=== PATIENT | female | born 1995 | race Caucasian/White ===

== ENCOUNTER 2024-04-01 15:00 | Outpatient (CLI) | payer OTHER, SELFPAY ==
--- OUTSIDE RECORDS SUMMARY | 2024-04-01 15:02 | XMS_ITS | Referral Summary ---
Author Organization [facility] Address [address] [place] [id number] Care Team Providers Care Pattern Vault Clerk Name Role Phone No Ref-Primary, Physician Primary Care Provider Encounters Date Type Department Care Team Description 03/29/2024 Travel 03/29/2024 12:43 PM CDT - 03/29/2024 4:35 PM CDT Emergency [facility] Emergency Dept [address] [place] [address] Sidney Pfeiffer MD Palpitations; Atypical chest pain Discharge Disposition: Home or Self Care from Last 3 Months Allergies No known active allergies Medications Medication Sig Dispensed Refills Start Date End Date Status LESSINA-28 0.1-20 MG-MCG tabletIndications:Bir th control counseling TAKE 1 TABLET BY MOUTH DAILY 84 tablet 09/07/2019 Active oxyCODONE (ROXICODONE) 5 MG tablet Take 1 tablet (5 mg) by mouth every 6 hours as needed for pain 12 tablet 10/14/2019 Active metoclopramide (REGLAN) 10 MG tablet Take 1 tablet (10 mg) by mouth 3 times daily as needed (nausea) 30 tablet 10/14/2019 Active Active Problems Problem Noted Date Diagnosed Date History of abnormal cervical Pap smear 9 Overview: 2016 LSIL with +other HPV 2017 Normal 2018 No Pap done 02/01/2019 NIL pap, Neg HPV . Pap in 3 years Oral contraceptive pill surveillance 11/26/2016 Resolved Problems Problem Noted Date Diagnosed Date Resolved Date Other postprocedural status(V45.89) 03/02/2012 08/07/2012 Abnormality of gait 03/02/2012 08/07/20 12 Sprain of cruciate ligament of knee 02/16/2012 03/09/2012 Sprain of cruciate ligament of knee 10/13/2009 12/08/2009 Other postprocedural status(V45.89) 10/13/2009 12/08/2009 Sprain of cruciate ligament of knee 05/28/2009 09/18/2009 Immunizations Name Administration Dates Next Due HPV9 02/01/2019 Social History Tobacco Use Types Packs/Day Years Used Date Smoking Tobacco: Never Smokeless Tobacco: Never Tobacco Cessation:Counseling Given: No Alcohol Use Standard Drinks/Week Comments Yes 0 (1 standard drink = 0.6 oz pur e alcohol) vodka PHQ-2 Answer Date Recorded PHQ-2 Score 0 01/10/2019 Adolescent Education Answer Date Record ed Getting School Help Needed Not on file 03/29 Sex and Gender Information Value Date Recorded Sex Assigned at Not on file Gender Identity Not on file Sexual Orientation Not on file Last Filed Vital Signs Vital Sign Reading Time Taken Comments Blood Pressure 112/81 03/29/2024 4:30 PM CDT Pulse 94 03/29/2024 4:00 PM CDT Temperature 36.6 ??C (97.9 ??F) 10/14/2019 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 Respiratory Rate 14 03/29/2024 1:10 PM CDT Oxygen Saturation 100% 03/29/2024 4:30 PM CDT Inhaled Oxygen Concentration - - Weight 66.2 kg (145 lb 15.1 oz) 024 12:40 PM CDT Height 170.2 cm (5' 7) 03/29/2024 12:4 0 PM CDT Body Mass Index 22.86 03/29/2024 12:40 PM CDT Plan of Treatment Not on file Procedures Procedure Name Priority Date/Time Associated Diagnosis Comments XR CHEST 2 VIEWS STAT 03/29/2024 3:47 PM CDT HCG QUALITATIVE STAT 03/29/2024 1:05 PM CDT ABO/RH TYPE AND SCREEN STAT 03/29/2024 1:04 PM CDT CBC WITH PLATELETS & DIFFERENTIAL STAT 03/29/2024 1:04 PM CDT TYPE AND SCREEN, ADULT STAT 03/29/2024 1:04 PM CDT CBC WITH PLATELETS AND DIFFERENTIAL STAT 03/29/2024 1:04 PM CDT TSH WITH FREE T4 REFLEX STAT 03/29/2024 1:04 PM CDT TROPONIN T, HIGH SENSITIVITY STAT 03/29/2024 1:04 PM CDT BASIC METABOLIC PANEL STAT 03/29/2024 1:04 PM CDT D DIMER QUANTITATIVE STAT 03/29/2024 1:04 PM CDT EKG 12-LEAD, TRACING ONLY STAT 03/29/2024 12:40 PM CDT PAP IMAGED THIN LAYER SCREEN Routine 02/01/2019 2:39 PM CDT Encounter for gynecological examination without abnormal finding NEISSERIA GONORRHOEAE PCR Routine 06/20/2018 9:43 AM CDT Screen for STD (sexually transmitted disease) HIV ANTIGEN ANTIBODY COMBO Routine 05/05/2016 10:50 AM CDT Screen for STD (sexually transmitted disease) HEPATITIS C ANTIBODY Routine 05/05/2016 10:50 AM CDT Screen for STD (sexually transmitted disease) from Last 3 Months or Most Recently Relevant to Health Maintenance Results * XR Chest 2 Views (03/29/2024 3:47 PM CDT) Anatomical Region Laterality Modality Chest Digital Radiogra phy Impressions 03/29/2024 3:50 PM CDT IMPRESSION: No infiltrate, pleural effusion or pneumothorax. The cardiac and mediastinal silhouettes are normal. AMILCAR CASTRO MD SYSTEM ID: ??[id number] Narrative 03/29/2024 3:50 PM CDT XR CHEST 2 VIEWS 03/29/2024 3:47 PM HISTORY: chest pain COMPARISON: None. Procedure Note Amilcar Castro MD - 03/29/2024 XR CHEST 2 VIEWS 03/29/2024 3:47 PM HISTORY: chest pain COMPARISON: None. IMPRESSION: No infiltrate, pleural effusion or pneumothorax. The cardiac and mediastinal silhouettes are normal. AMILCAR CASTRO MD SYSTEM ID: [id number] Sidney Pfeiffer MD IMG DIAGNOSTIC IMAGING ORDERABLES * HCG QUALitative (blood) (03/29/2024 1:05 PM CDT) hCG Serum Qualitative Negative Negative CHASITY 03/29/2024 2:03 PM CDT [facility] Comment:This test is for scr eening purposes. Results should be interpreted along with the clinical picture. Confirmation testing is available if warranted by ordering [id number], HCG Quantitative . Blood BLOOD SPECIMEN / Unknown Venipuncture / Unknown 03/29/2024 1:05 PM CDT 03/29/2024 1:10 PM CDT Sidney Pfeiffer MD LAB - BLOOD ORD ERABLES [facility] [address] [facility] Lab (1st floor, no room number) [place] [address], [facility] * CBC with platelets and differential (03/29/2024 1:04 PM CDT) WBC Count 7.0 4.0 - 11.0 10e3/uL 03/29/2024 1:15 PM CDT [facility] RBC Count 4.16 3.80 - 5.20 10e6/uL 03/29/2024 1:15 PM CDT [facility] Hemoglobin 11.9 11.7 - 15.7 g/dL 03/29/2024 1:15 PM CDT [facility] Hematocrit 36.4 35.0 - 47.0 % 03/29/2024 1:15 PM CDT [facility] MCV 88 78 - 100 fL 03/29/2024 1:15 PM CDT [facility] MCH 28.6 26.5 - 33.0 pg 03/29/2024 1:15 PM CDT [facility] MCHC 32.7 31.5 - 36.5 g/dL 03/29/2024 1:15 PM CDT [facility] RDW 13.3 10.0 - 15.0 % 03/29/2024 1:15 PM CDT [facility] Platelet Count 208 150 - 450 10e3/uL 03/29/2024 1:15 PM CDT [facility] % Neutrophils 54 % 03/29/2024 1:15 PM CDT [facility] % Lymphocytes 37 % 03/29/2024 1:15 PM CDT [facility] % Monocytes 7 % 03/29/2024 1:15 PM CDT [facility] % Eosinophils 1 % 03/29/2024 1:15 PM CDT [facility] % Basophils 0 % 03/29/2024 1:15 PM CDT [facility] % Immature Granulocytes 0 % 03/29/2024 1:15 PM CDT [facility] NRBCs per 100 WBC 0 <1 /100 024 1:15 PM CDT [facility] Absolute Neutrophils 3.8 1.6 - 8.3 10e3/uL 03/29/2024 1:15 PM CDT [facility] Absolute Lymphocytes 2.6 0.8 - 5.3 10e3/uL 03/29/2024 1:15 PM CDT [facility] Absolute Monocytes 0.5 0.0 - 1.3 10e3/uL 03/29/2024 1:15 PM CDT [facility] Absolute Eosinophils 0.1 0.0 - 0.7 10e3/uL 03/29/2024 1:15 PM CDT [facility] Absolute Basophils 0.0 0.0 - 0.2 10e3/uL 03/29/2024 1:15 PM CDT [facility] Absolute Immature Granulocytes 0.0 <=0.4 10e3/uL 03/29/2024 1:15 PM CDT [facility] Absolute NRBCs 0.0 10e3/uL 03/29/2024 1:15 PM CDT [facility] Blood BLOOD SPECIMEN / Unknown Venipuncture / Unknown 03/29/2024 1:04 PM CDT 03/29/2024 1:10 PM CDT Sidney Pfeiffer MD LAB - BLOOD ORD ERABLES LABORATORY [facility] [address], no room number) [place] [address] * Adult Type and Screen (03/29/2024 1:04 PM CDT) Pathologist [facility] ABO/RH(D) A POS 03/29/2024 12:57 PM CDT [facility] B[facility]OD BANK Antibody Screen Negative Negative 03/29/2024 12:57 PM CDT [facility] B[facility]OD BANK SPECIMEN EXPIRATION DATE [id number] 03/29/2024 12:57 PM CDT BLOOD BANK Blood BLOOD SPECIMEN / Unknown Venipuncture / Unknown 03/29/2024 1:04 PM CDT 03/29/2024 1:13 PM CDT Sidney Pfeiffer MD LAB - BLOOD BAN K TEST ORDER Performing Organization Address City/[facility]/ZIP Co de Phone Number BLOOD BANK [address] [place] [address], [facility] * Troponin T, High Sensitivity (03/29/2024 1:04 PM CDT) Pathologist [facility] Troponin T, High Sensitivity <6 <=14 ng/L 03/29/2024 1:52 PM CDT LABORATORY Comment: Either a High Sensitivity Troponin T baseline (0 hours) value = 100 ng/L, or an increase in High Sensitivity Troponin T = 7 ng/L at 2 hours compared to 0 hours (2-0 hours), suggests myocardial injury, and urgent clinical attention is required. ?? If the 2-0 hours increase is <7 ng/L, a High Sensitivity Troponin T result above gender-specific reference ranges warrants further evaluation. Recommendations for further evaluation include correlation with clinical decision-making tool (e.g., HEART), a 3rd High Sensitivity Troponin T test 2 hours after the 2nd (a 20% change from baseline would represent concern), admission for observation, close PCC/cardiology follow-up, or urgent outpatient provocative testing. Blood BLOOD SPECIMEN / Unknown Venipuncture / Unknown 03/29/2024 1:04 PM CDT 03/29/2024 1:10 PM CDT Sidney Pfeiffer MD LAB - BLOOD ORD ERAMAREN Performing Organization Address City/[facility]/ZIP Co de Phone Number [facility] [address] Lab (1st floor, no room number) [place] [phone] [place] [address] * TSH with free T4 reflex (03/29/2024 1:04 PM CDT) TSH 1.67 0.30 - 4.20 uIU/mL 03/29/2024 1:52 PM CDT LABORATORY Blood BLOOD SPECIMEN / Unknown Venipuncture / Unknown 03/29/2024 1:04 PM CDT 03/29/2024 1:10 PM CDT Sidney Pfeiffer MD LAB - BLOOD ORD VAUGHN Performing Organization Address [facility] Co de Phone Number [facility] [address] Lab (1st floor, no room number) [place] [phone] * D dimer quantitative (03/29/2024 1:04 PM CDT) D-Dimer Quantitative 0.31 0.00 - 0.50 ug/mL FEU 03/29/2024 1:50 PM CDT [facility] Blood BLOOD SPECIMEN / Unknown Venipuncture / Unknown 03/29/2024 1:04 PM CDT 03/29/2024 1:10 PM CDT Narrative [facility] - 03/29/2024 1:50 PM CDT This D-dimer assay is intended for use in conjunction with a clinical pretest probability assessment model to exclude pulmonary embolism (PE) and deep venous thrombosis (DVT) in outpatients suspected of PE or DVT. The cut-off value is 0.50 ug/mL FEU. Sidney Pfeiffer MD LAB - BLOOD ORD ERAMAREN Performing Organization Address City/[facility]/ZIP Co de Phone Number [facility] [address] Lab (1st floor, no room number) [place] [address], [facility] * (ABNORMAL) Basic metabolic panel (03/29/2024 1:04 PM CDT) Sodium 138 135 - 145 mmol/L 03/29/2024 1:46 PM CDT [facility] Potassium 3.5 3.4 - 5.3 mmol/L 03/29/2024 1:46 PM CDT [facility] Chloride 103 98 - 107 mmol/L 03/29/2024 1:46 PM CDT [facility] Carbon Dioxide (CO2) 20(L) 22 - 29 mmol/L 03/29/2024 1:46 PM CDT [facility] Anion Gap 15 7 - 15 mmol/L 03/29/2024 1:46 PM CDT [facility] Urea Nitrogen 10.8 6.0 - 20.0 mg/dL 03/29/2024 1:46 PM CDT [facility] Creatinine 0.70 0.51 - 0.95 mg/dL 03/29/2024 1:46 PM CDT [facility] GFR Estimate >90 >60 mL/min/1.7 3m2 03/29/2024 1:46 PM CDT [facility] Comment:eGFR calculated usin 2020 CKD-EPI equation. Calcium 8.7(L) 8.8 - 10.4 mg/dL 03/29/2024 1:46 PM CDT [facility] Comment:Reference intervals for this test were updated on 03/06/2024 to reflect our healthy population more accurately. There may be differences in the flagging of prior results with similar values performed with this method. Those prior results can be interpreted in the context of the updated reference intervals. Glucose 115(H) 70 - 99 mg/dL 03/29/2024 1:46 PM CDT [facility] Blood BLOOD SPECIMEN / Unknown Venipuncture / Unknown 03/29/2024 1:04 PM CDT 03/29/2024 1:10 PM CDT Sidney Pfeiffer MD LAB - BLOOD ORD ERABLES LABORATORY [facility] [address] Lab (1st floor, no room number) [place] [address] * EKG 12 lead (03/29/2024 12:40 PM CDT) Systolic Blood Pressure mmHg RADIOLOGY RESULTS Diastolic Blood Pressure mmHg RADIOLOGY RESULTS Ventricular Rate 119 BPM RAD IOLOGY RESULTS Atrial Rate 119 BPM RADIOLOG Y RESULTS DE Interval 156 ms RADIOLOG Y RESULTS QRS Duration 92 ms RADIOLO GY RESULTS QT 306 ms RADIOLOGY RESULTS QTc 430 ms RADIOLOGY RESULTS P [place] 74 degrees RADIOLOGY RESULTS R AXIS 76 degrees RADIOLOGY RESULTS T [place] 46 degrees RADIOLOGY RESULTS Interpretation ECG Sinus tachycardia Incomplete right bundle branch block Borderline ECG No previous ECGs available Unconfirmed report - interpretation of this ECG is computer generated - see medical record for final interpretation Confirmed by - EMERGENCY ROOM, PHYSICIAN ([id number]), photo editor AJAY GARCIA ([id number]) on 03/30/2024 6:40:45 AM RADIOLOGY RESULTS 03/29/2024 12:4 0 PM CDT 03/30/2024 6:40 AM CDT Sidney Pfeiffer MD ECG ORDERABLES RADIOLOGY RESULTS * Pap imaged thin layer screen with HPV - recommended age 30 - 65 (02/01/2019 2:39 PM CDT) PAP NIL COPATH Copath Report Patient Name: MARY VIDAL MR#: [id number] Specimen #: [id number] Collected: 02/01/2019 Received: 02/02/2019 Reported: 02/06/2019 13:10 Ordering Phy(s): ZEINA MUSTAFA For improved result formatting, select 'View Enhanced Report Format' under Linked Documents section. SPECIMEN/STAIN PROCESS: Pap imaged thin layer prep screening (Surepath, FocalPoint with guided screening) ? Pap-Cyto x 1, HPV ordered x 1 SOURCE: Cervical, endocervical Pap imaged thin layer prep screening (Surepath, FocalPoint with guided screening) SPECIMEN ADEQUACY: Satisfactory for evaluation. -Transformation zone component present. CYTOLOGIC INTERPRETATION: Negative for intraepithelial lesion or malignancy Electronically signed out by: YULISA Rose (ASCP) CLINICAL HISTORY: A previous normal pap Date of Last Pap: 04/13/2017, Papanicolaou Test Limitations: ??Cervical cytology is a screening test with limited sensitivity; regular screening is critical for cancer prevention; Pap tests are primarily effective for the diagnosis/preventi on of squamous cell carcinoma, not adenocarcinomas or other cancers. COLLECTION SITE: Client: [facility] The technical component of this testing was completed at the [facility], with the professional component performed at the [facility], [address] [place] [phone] ([phone]) COPATH Cytologic material (specimen) 02/01/2019 2:39 PM CDT 02/02/2019 11:08 AM CDT Zeina Mustafa APRN CN LAB - OPTIM E CLINICAL SPECIMEN COPATH * NEISSERIA GONORRHOEA PCR (06/20/2018 9:43 AM CDT) Specimen Descrip Cervix 06/20/20 18 10:17 AM CDT [facility] N Gonorrhea PCR Negative NEG^Negat nerissa 06/21/2018 1:26 PM CDT [facility] Comment: Negative for N. gonorrhoeae rRNA by pin inserter mediated amplification. A negative result by pin inserter mediated amplification does not preclude the presence of N. gonorrhoeae infection because results are dependent on proper and adequate collection, absence of inhibitors, and sufficient rRNA to be detected. Cervical swab (specimen) 06/20/2018 9:43 AM CDT 06/20/2018 10:17 AM CDT Thuy Hillman APRN [facility] - [place] [facility] PATHOLOGIST GENERAL ORDERABLES [facility] [address] [place] [address] * HIV Antigen Antibody Combo (05/05/2016 10:50 AM CDT) HIV Antigen Antibody Combo Nonreactive HIV-1 p24 Ag & HIV-1/HIV-2 Ab Not Detected NR [facility] Blood specimen (specimen) 05/05/2016 10:50 AM CDT 05/05/2016 10:51 AM CDT Jo-Ann Baptiste APRN [facility] - BLOOD ORDERA BLES [facility] [address] * Hepatitis C Antibody (05/05/2016 10:50 AM CDT) Hepatitis C Antibody Nonreactive Assay performance characteristics have not been established for newborns, infants, and children NR [facility] Blood specimen (specimen) 05/05/2016 10:50 AM CDT 05/05/2016 10:51 AM CDT Jo-Ann Baptiste APRN [facility] - BLOOD ORDERA BLES [facility] [address] from Last 3 Months or Most Recently Relevant to Health Maintenance Care Teams Pattern Vault Clerk Relationship Specialty Start Date End Date No Ref-Primary, Physician PCP - General 10/30/17
--- OUTSIDE RECORDS SUMMARY | 2024-04-01 15:02 | XMS_ITS | Encounter Summary ---
Author Organization [facility] Address [address] [place] [address] Care Team Providers Care Rigging Up Man Name Role Phone No Ref-Primary, Physician Primary Care Provider Encounter Details Date Type Department Care Team (Latest Contact Info) Description 03/29/2024 Travel Social History Tobacco Use Types Packs/Day Years Used Date Smoking Tobacco: Never Smokeless Tobacco: Never Alcohol Use Standard Drinks/Week Comments Yes 0 (1 standard drink = 0.6 oz pur e alcohol) vodka PHQ-2 Answer Date Recorded PHQ-2 Score 0 01/10/2019 Adolescent Education Answer Date Record ed Getting School Help Needed Not on file 03/29 Sex and Gender Information Value Date Recorded Sex Assigned at Not on file Gender Identity Not on file Sexual Orientation Not on file documented as of this encounter Plan of Treatment Not on file documented as of this encounter Visit Diagnoses Not on filedocumented in this encounter Additional Health Concerns Assessment Noted Time PHQ-9 Depression Total Score: 5 02/02/20 19 2:09 PM CDT documented as of this encounter Care Teams Rigging Up Man Relationship Specialty Start Date End Date No Ref-Primary, Physician PCP - General 10/30/17 documented as of this encounter
--- OUTSIDE RECORDS SUMMARY | 2024-04-01 15:02 | XMS_ITS | Clinical Summary ---
Author Organization [facility] Address [address] [place] [id number] Care Team Providers Care Event Organizer Name Role Phone No Ref-Primary, Physician Primary Care Provider Allergies No known active allergies Medications Medication [...] of cruciate ligament of knee 05/28/2009 09/18/2009 Encounters Date Type Department Care Team Description 03/29/2024 12:43 PM CDT - 03/29/2024 4:35 PM CDT Emergency [facility] [address] [place] [address] Sidney Pfeiffer MD Palpitations; Atypical chest pain Discharge Disposition: Home or Self Care 03/29/2024 Travel from Last 3 Months Immunizations Name Administration Dates Next Due HPV9 02/01/2019 Family History Medical History Relation Comments Ovarian Cancer Maternal Grandmother passed in h er late 60s Other - See Comments Mother mother had spots on her ovaries-had hysterectomy Relation Status Comments Maternal Grandmother Mother Social History Tobacco Use Types Packs/Day Years [...] ??C (97.9 ??F) 10/14/2019 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 Respiratory Rate 14 03/29/2024 1:10 PM CDT Oxygen Saturation 100% 03/29/2024 4:30 PM CDT Inhaled Oxygen Concentration - - Weight 66.2 kg (145 lb 15.1 oz) 024 12:40 PM CDT Height 170.2 cm (5' 7) 03/29/2024 12:4 0 PM CDT Body Mass Index 22.86 03/29/2024 12:40 PM CDT Plan of Treatment Health Maintenance Due Date Last Done Comments ADVANCE CARE PLANNING 1994 ANNUAL REVIEW OF HM ORDERS 1994 HEPATITIS B IMMUNIZATION (2 of 3 - 3-dose series) 01/13/1996 12/16/1995 IPV IMMUNIZATION (2 of 3 - 4-dose series) 03/25/2000 02/26/2000 COVID-19 Vaccine (3 - season) 2023 09/10/2021, 08/20/2021 PHQ-2 (once per calendar year) 2023 02/01/2019, 01/10/2019, 04/13/2017, Additional history exists YEARLY PREVENTIVE VISIT 09/15/2023 09/15/19 23, 04/13/2017, 01/13/2016 INFLUENZA VACCINE (#1) 2024 4, 06/15/2012, 06/17/2010, Additional history exists PAP 09/15/2025 09/15/2022, 01/20, 04/13/2017, Additional history exists DTAP/TDAP/TD IMMUNIZATION (8 - Td or Tdap) 05/28/2030 05/28/2020, 04/13/2006, 02/26/2000, Additional history exists MENINGITIS IMMUNIZATION Aged Out 02/14/2014, 05/07 No longer eligible based on patient's age to complete this topic HEPATITIS C SCREENING Completed 05/05/2016 HIV SCREENING Completed 05/05/2016 CHLAMYDIA SCREENING Discontinued 06/20/2018, 06/20/2018, 04/13/2017, Additional history exists HPV IMMUNIZATION Completed 02/01/2019, , 02/14/2014 Pneumococcal Vaccine: Pediatrics (0 to 5 Years) and At-Risk Patients (6 to 64 Years) Aged Out No longer eligible based on patient's age to complete this topic RSV MONOCLONAL ANTIBODY Aged Out No l onger eligible based on patient's age to complete this topic Procedures Procedure Name Priority Date/Time Associated Diagnosis [...] are normal. AMILCAR CASTRO MD SYSTEM ID: [id number] Narrative 03/29/2024 3:50 PM CDT XR CHEST 2 VIEWS 03/29/2024 3:47 PM HISTORY: chest pain COMPARISON: None. Procedure Note Amilcar Castro MD - 03/29/2024 XR CHEST 2 VIEWS 03/29/2024 3:47 PM HISTORY: chest pain COMPARISON: None. IMPRESSION: No infiltrate, pleural effusion or pneumothorax. The cardiac and mediastinal silhouettes are normal. AMILCAR CASTRO MD SYSTEM ID: [id number] Sidney Pfeiffer MD IMG DIAGNOSTIC IMAGING ORDERABLES * HCG QUALitative (blood) (03/29/2024 1:05 PM CDT) hCG Serum Qualitative Negative Negative CHASITY 03/29/2024 2:03 PM CDT [facility] Comment:This test is for scr eening purposes. Results should be interpreted along with the clinical picture. Confirmation testing is available if warranted by ordering [id number], HCG Quantitative . Blood BLOOD SPECIMEN / Unknown Venipuncture / Unknown 03/29/2024 1:05 PM CDT 03/29/2024 1:10 PM CDT Sidney Pfeiffer MD LAB - BLOOD ORD ERABLES [facility] Lab [address] [facility] Lab (1st floor, no room number) [place] [address] * CBC with platelets and differential [...] LAB - BLOOD ORD ERABLES [facility] [address] floor, no room number) [place] [address] * Adult Type and Screen (03/29/2024 1:04 PM CDT) ABO/RH(D) A POS 03/29/2024 12:57 PM CDT RH BLOOD BANK Antibody Screen Negative Negative 03/29/2024 12:57 PM CDT [facility] BLOOD BANK SPECIMEN EXPIRATION DATE [id number] 03/29/2024 12:57 PM CDT [facility] BLOOD BANK Blood BLOOD SPECIMEN / Unknown Venipuncture / Unknown 03/29/2024 1:04 PM CDT 03/29/2024 1:13 PM CDT Sidney Pfeiffer MD LAB - BLOOD BAN K TEST ORDER BLOOD BANK [address] [place] [address] * Troponin T, High Sensitivity (03/29/2024 1:04 PM CDT) Pathologist [facility] Troponin T, High Sensitivity <6 <=14 ng/L [...] Pfeiffer MD LAB - BLOOD ORD ERABLES [facility] Acute Care Lab [address] Lab (1st floor, no room number) [address] * TSH with free T4 reflex (03/29/2024 1:04 PM CDT) TSH 1.67 0.30 - 4.20 uIU/mL 03/29/2024 1:52 PM CDT [facility] Blood BLOOD SPECIMEN / Unknown Venipuncture / Unknown 03/29/2024 1:04 PM CDT 03/29/2024 1:10 PM CDT Sidney Pfeiffer MD LAB - BLOOD ORD ERABLES Performing Organization Address [facility]/ZIP Co de Phone Number [facility] [address] Lab (1st floor, no room number) [address] * D dimer quantitative (03/29/2024 1:04 PM CDT) D-Dimer Quantitative 0.31 0.00 - 0.50 ug/mL FEU 03/29/2024 1:50 PM CDT LABORATORY Blood BLOOD SPECIMEN / [...] Pfeiffer MD LAB - BLOOD ORD ERABLES [facility] Care Lab [address] Lab (1st floor, no room number) [address] * (ABNORMAL) Basic metabolic panel (03/29/2024 1:04 [...] - 99 mg/dL 03/29/2024 1:46 PM CDT LABORATORY Blood BLOOD SPECIMEN / Unknown Venipuncture / Unknown 03/29/2024 1:04 PM CDT 03/29/2024 1:10 PM CDT Sidney Pfeiffer MD LAB - BLOOD ORD ERABLES LABORATORY [facility] Acute Care Lab [address] Lab (1st floor, no room number) [place] [address], [facility] * EKG 12 lead (03/29/2024 12:40 PM CDT) Systolic Blood Pressure mmHg RADIOLOGY RESULTS Diastolic Blood Pressure mmHg RADIOLOGY RESULTS Ventricular Rate 119 BPM RAD IOLOGY RESULTS Atrial Rate 119 BPM RADIOLOG Y RESULTS NH Interval 156 ms RADIOLOG Y RESULTS QRS Duration 92 ms RADIOLO GY RESULTS QT 306 ms RADIOLOGY RESULTS QTc 430 ms RADIOLOGY RESULTS P [place] 74 degrees RADIOLOGY RESULTS R AXIS 76 degrees RADIOLOGY RESULTS T [place] 46 degrees RADIOLOGY RESULTS Interpretation ECG Sinus tachycardia Incomplete right bundle branch block Borderline ECG No previous ECGs available Unconfirmed report - interpretation of this ECG is computer generated - see medical record for final interpretation Confirmed by - EMERGENCY ROOM, PHYSICIAN ([id number]), loan expeditor AJAY GARCIA ([id number]) on 03/30/2024 6:40:45 AM RADIOLOGY RESULTS 03/29/2024 12:4 0 PM CDT 03/30/2024 6:40 AM CDT Sidney Pfeiffer MD ECG ORDERABLES RADIOLOGY RESULTS * Pap imaged thin layer screen with HPV - recommended age 30 - 65 (02/01/2019 2:39 PM CDT) PAP NIL COPATH Copath Report Patient Name: MARY VIDAL MR#: [id number] Specimen #: [id number] Collected: 02/01/2019 Received: 02/02/2019 Reported: 02/06/2019 13:10 [...] adenocarcinomas or other cancers. COLLECTION SITE: Client: ??[facility] Location: [id number] (S) The technical component of this testing was completed at the [facility], with the professional component performed at the [facility], [address] [place] [phone] ([phone]) COPATH Cytologic material (specimen) 02/01/2019 2:39 PM CDT 02/02/2019 11:08 AM CDT Zeina Mustafa APRN CNM LAB - OPTIM E CLINICAL SPECIMEN Performing Organization Address City/[facility]/ZIP Co de Phone Number COPATH * NEISSERIA GONORRHOEA PCR (06/20/2018 9:43 AM CDT) Specimen Descrip Cervix 06/20/20 18 10:17 AM CDT [facility] N Gonorrhea PCR Negative NEG^Negat nerissa 06/21/2018 1:26 PM CDT [facility] Comment: Negative for N. gonorrhoeae rRNA by planning engineer mediated amplification. A negative result by planning engineer mediated amplification does not preclude the presence of N. gonorrhoeae infection because results are dependent on proper and adequate collection, absence of inhibitors, and sufficient rRNA to be detected. Cervical swab (specimen) 06/20/2018 9:43 AM CDT 06/20/2018 10:17 AM CDT Thuy Hillman APRN ETCH OPERATOR [employer] [facility] LAB - AR GUEST ASSOCIATE GENERAL ORDERABLES Performing Organization Address City/[facility]/ZIP Co de Phone Number [facility] [address] [place] [id number] [address] [place] [address] [place] [address] * HIV Antigen Antibody Combo (05/05/2016 10:50 AM CDT) HIV Antigen Antibody Combo Nonreactive HIV-1 p24 Ag & HIV-1/HIV-2 Ab Not Detected NR [facility] Blood specimen (specimen) 05/05/2016 10:50 AM CDT 05/05/2016 10:51 AM CDT Jo-Ann Baptiste APRN CN LAB - BLOOD ORDERA BLES [facility] [address] * Hepatitis C Antibody (05/05/2016 10:50 AM CDT) Hepatitis C Antibody Nonreactive Assay performance characteristics have not been established for newborns, infants, and children NR [facility] Blood specimen (specimen) 05/05/2016 10:50 AM CDT 05/05/2016 10:51 AM CDT Jo-Ann Baptiste APRN [facility] LAB - BLOOD ORDERA BLES [facility] [address] from Last 3 Months or Most Recently Relevant to Health Maintenance Care Teams Event Organizer Relationship Specialty Start Date End Date No Ref-Primary, Physician PCP - General 10/30/17
--- OUTSIDE RECORDS SUMMARY | 2024-04-01 15:03 | XMS_ITS | Clinical Summary ---
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 [facility] Allergies Active Allergy Reactions Criticality Noted Date Comments Oxycodone-Acetaminophen Itching Medium 02/29/2012 Medications Medication Sig Dispensed Refills Start Date End Date Status acetaminophen (AKA TYLENOL) 325 MG tablet Take 325-650 mg by mouth every 4 hours as needed. Maximum 4000mg per 24 hours 03/08/2012 Active Active Problems Problem Noted Date Diagnosed Date Right knee pain 03/19/2015 Family History Medical History Relation Name Comments Heart Disease Maternal Grandfather Cancer Maternal Grandmother Cancer Paternal Grandfather Heart Disease Paternal Grandfather Anesthesia Reaction Negative Family History Broken Bones Negative Family History Diabetes Negative Family History Osteoporosis Negative Family History Rheumatologic Disease Negative Family History Relation Name Status Comments Maternal Grandfather Maternal Grandmother Paternal Grandfather Social History Tobacco Use Types Packs/Day Years Used Date Smoking Tobacco: Never Sex and Gender Information Value Date Recorded Sex Assigned at Not on file Gender Identity Not on file Sexual Orientation Not on file Last Filed Vital Signs Vital Sign Reading Time Taken Comments Blood Pressure - - Pulse - - Temperature 36.7 ??C (98.1 ??F) 03/19/2015 6:50 PM CD T Respiratory Rate - - Oxygen Saturation - - Inhaled Oxygen Concentration - - Weight 70 kg (154 lb 6.4 oz) 07/13/2019 1:19 PM 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 Height 167.6 cm (5' 6) 07/13/2019 1:19 PM 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 Body Mass Index 24.92 07/13/2019 1:19 PM 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 Plan of Treatment Health Maintenance Due Date Last Done Comments Cervical Cancer Screening Due 1994 Hep C Screening (Preventive Services) 1994 HIV Screening (Preventive Services) 2010 Adult Preventive Visit 2012 DTaP/Tdap/Td (1 - Tdap) 2013 HepB (1) 2013 HPV Vaccine (2 - 3-dose series) 03/01/2019 9 COVID-19 Vaccine ( - 2022-2 4 season) 2023 Influenza (#1) 2024 Zoster/Shingles (1 of 2) 2044 HepA Aged Out No longer eligi ble based on patient's age to complete this topic Hib Aged Out No longer eligi ble based on patient's age to complete this topic IPV (Polio) Aged Out No longer eligi ble based on patient's age to complete this topic MCV4 Aged Out No longer eligi ble based on patient's age to complete this topic Pneumococcal Aged Out No longer eligi ble based on patient's age to complete this topic Care Teams Chocolate Production Machine Operator Relationship Specialty Start Date End Date Clinician, Not Found, [place] [address] PCP - General 03/04/14
--- OUTSIDE RECORDS SUMMARY | 2024-04-01 15:03 | XMS_ITS | Encounter Summary ---
Author Organization [facility] Address [address] [place] [id number] Care Team Providers Care Brokerage Purchase And Sale Clerk Name Role Phone No Ref-Primary, Physician Primary Care Provider Reason for Visit * Reason Comments Shortness of Breath Encounter Details Date Type Department Care Team (Late st Contact Info) Description 03/29/2024 12:43 PM CDT - 03/29/2024 4:35 PM CDT Emergency [facility] Emergency Dept [address] [place] [address] Sidney Pfeiffer MD [facility] [address] [place] [address] Palpitations; Atypical chest pain Discharge Disposition: Home or Self Care Social History Tobacco Use Types Packs/Day Years [...] on file documented as of this encounter Last Filed Vital Signs Vital Sign Reading Time Taken Comments Blood Pressure 112/81 03/29/2024 4:30 PM CDT Pulse 94 03/29/2024 4:00 PM CDT Temperature - - Respiratory Rate 14 03/29/2024 1:10 PM CDT Oxygen Saturation 100% 03/29/2024 4:30 PM CDT Inhaled Oxygen Concentration - - Weight 66.2 kg (145 lb 15.1 oz) 024 12:40 PM CDT Height 170.2 cm (5' 7) 03/29/2024 12:4 0 PM CDT Body Mass Index 22.86 03/29/2024 12:40 PM CDT documented in this encounter Discharge Instructions * Attachments The following attachments cannot be sent through Care Everywhere. * Chest Pain (Bhutanese) documented in this encounter Medications at Time of Discharge Medication Sig Dispensed Refills Start Date End Date LESSINA-28 0.1-20 MG-MCG tabletIndications: control counseling TAKE 1 TABLET BY MOUTH DAILY 84 tablet 09/07/2019 metoclopramide (REGLAN) 10 MG tablet Take 1 tablet (10 mg) by mouth 3 times daily as needed (nausea) 30 tablet 10/14/2019 oxyCODONE (ROXICODONE) 5 MG tablet Take 1 tablet (5 mg) by mouth every 6 hours as needed for pain 12 tablet 10/14/2019 documented as of this encounter ED Notes * Sherley Akbar RN - 03/29/2024 1:56 PM CDT Bed: ED30 Expected date: Expected time: Means of arrival: Comments: ED3 * Ce Cortez RN - 03/29/2024 12:49 PM CDT Bed: ED03 Expected date: Expected time: Means of arrival: Comments: JESSIKA-triage * Ce Cortez RN - 03/29/2024 12:38 PM CDT Patient ambulatory to triage reporting shortness of breath. Patient was on a walk when she became lightheaded, chest tightness, and shortness of breath. Patient pale and diaphoretic in triage, stating something isn't right repeatedly. * Sidney Pfeiffer MD - 03/29/2024 12:37 PM CDT Emergency Department Note History of Present Illness Chief Complaint Shortness of Breath HPI Mary Vidal is a 28 year old female presenting with shortness of breath. Mary woke up thismorning at 0730 and felt normal. She went on one walk this morning and continued to feel at baseline. The patient was starting her second walk of the day, when she started to feel chest tightness, spotty vision, shaky, and syncopal. Upon examination, she notes dry mouth, difficulty swallowing, and difficulty thinking. The patient appears more pale to her mother, who is at bedside. She denies vomiting, hives, or swelling. She reports eating breakfast this morning. Mary denies use of oral contraception, inhalers, or nebulizers. No increased life stressors. No history of similar symptoms. Of note, Mary has a history of heavy periods, but she is not currently on her period. Independent Historian Mother as detailed above. Review of External Notes Past Medical History Medical History and Problem List Anxiety Pansinusitis Medications Metoclopramide Surgical History ACL repair x2 Sinus surgery Physical Exam Patient Vitals for the past 24 hrs: BP Pulse Resp SpO2 Height Weight 03/29/24 1630 112/81 -- -- 100 % -- -- 03/29/24 1600 118/86 94 -- -- -- -- 03/29/24 1530 109/75 93 -- 100 % -- -- 03/29/24 1515 98/66 81 -- 100 % -- -- 03/29/24 1500 102/67 82 -- 100 % -- -- 03/29/24 1445 109/73 80 -- 100 % -- -- 03/29/24 1430 113/74 88 -- 100 % -- -- 03/29/24 1412 -- 89 -- 100 % -- -- 03/29/24 1400 109/76 -- -- -- -- -- 03/29/24 1352 -- -- -- 100 % -- -- 03/29/24 1340 -- 97 -- 100 % -- -- 03/29/24 1320 -- 117 -- 99 % -- -- 03/29/24 1310 -- 115 14 99 % -- -- 03/29/24 1300 (!) 120/92 (!) 133 -- -- -- -- 03/29/24 1240 (!) 134/90 (!) 136 20 99 % 1.702 m (5' 7) 66.2 kg (145 lb 15.1 oz) Physical Exam HENT: mmm, no rhinorrhea Eyes: periorbital tissues and sclera normal Neck: supple, no abnormal swelling Lungs: CTAB, no resp distress CV: tachycardic, no m/r/g, ppi Abd: soft, nontender, nondistended, no rebound/masses/guarding/hsm Ext: no peripheral edema Skin: warm, dry, well perfused, no rashes/bruising/lesions on exposed skin Neuro: alert, MAEE, no gross motor or sensory deficits, gait stable Psych: Normal mood, normal affect Diagnostics Lab Results Labs Ordered and Resulted from Time of ED Arrival to Time of ED Departure BASIC METABOLIC PANEL - Abnormal Result Value Sodium 138 Potassium 3.5 Chloride 103 Carbon Dioxide (CO2) 20 (*) Anion Gap 15 Urea Nitrogen 10.8 Creatinine 0.70 GFR Estimate >90 Calcium 8.7 (*) Glucose 115 (*) D DIMER QUANTITATIVE - Normal D-Dimer Quantitative 0.31 TROPONIN T, HIGH SENSITIVITY - Normal Troponin T, High Sensitivity <6 TSH WITH FREE T4 REFLEX - Normal TSH 1.67 HCG QUALITATIVE - Normal hCG Serum Qualitative Negative CBC WITH PLATELETS AND DIFFERENTIAL WBC Count 7.0 RBC Count 4.16 Hemoglobin 11.9 Hematocrit 36.4 MCV 88 MCH 28.6 MCHC 32.7 RDW 13.3 Platelet Count 208 % Neutrophils 54 % Lymphocytes 37 % Monocytes 7 % Eosinophils 1 % Basophils 0 % Immature Granulocytes 0 NRBCs per 100 WBC 0 Absolute Neutrophils 3.8 Absolute Lymphocytes 2.6 Absolute Monocytes 0.5 Absolute Eosinophils 0.1 Absolute Basophils 0.0 Absolute Immature Granulocytes 0.0 Absolute NRBCs 0.0 TYPE AND SCREEN, ADULT ABO/RH(D) A POS Antibody Screen Negative SPECIMEN EXPIRATION DATE ABO/RH TYPE AND SCREEN Imaging XR Chest 2 Views Final Result IMPRESSION: No infiltrate, pleural effusion or pneumothorax. The cardiac and mediastinal silhouettes are normal. AMILCAR CASTRO MD SYSTEM ID: [id number] EKG ECG taken at 1240, ECG read at 1255 Sinus tachycardia Incomplete right bundle branch block Borderline ECG Rate 119 bpm. FL interval 156 ms. QRS duration 92 ms. QT/QTc 306/430 ms. P-R-T axes 74 76 46. Independent Interpretation To my read : Chest Radiograph without Pneumothorax, Lobar opacity, nor concerning cardiomegaly or pulm edema/pleural effusion ED Course Medications Administered Medications albuterol (PROVENTIL HFA/VENTOLIN HFA) inhaler (2 puffs Inhalation $Given 03/29/24 1319) LORazepam (ATIVAN) injection 0.5 mg (0.5 mg Intravenous $Given 03/29/24 1324) lactated ringers BOLUS 1,000 mL (0 mLs Intravenous Stopped 03/29/24 1631) ketorolac (TORADOL) injection 15 mg (15 mg Intravenous $Given 03/29/24 1321) Procedures Procedures Discussion of Management ED Course ED Course as of 03/29/24 1806 Kiya Mar 29, 2024 1255 I obtained the history and examined the patient as noted above. 1556 I rechecked and updated the patient. Additional Documentation Medical Decision Making / Diagnosis [facility] Diagnoses: [facility] Mary Vidal is a 28 year old female presenting with palpitation and atypical chest discomfort. EKG here showing sinus tachycardia, no complex, no concerning red flags for underlying weight and arrhythmia. No hypoxia or significant facial bruising. Work appears no evidence of symptomatic anemia, receptive, pulm embolism, clinical concern for dissection or appreciate infectious process. Given the workup here in the ER think she has been risk stratified low enough to be discharged home. Wediscussed what is now as well as unknown at this point with Ortho following return here to the emergency department. Disposition The patient was discharged. Diagnosis ICD-10-CM 1. Palpitations R00.2 2. Atypical chest pain R07.89 Discharge Medications Discharge Medication List as of 03/29/2024 4:32 PM Scribe Disclosure: Larissa Bletran, am serving as a scribe at 12:56 PM on 03/29/2024 to document services personally performed by Sidney Pfeiffer MD based on my observations and the provider's statements Sdiney Carbajal MD 03/29/24 1808 documented in this encounter Plan of Treatment Not on file documented as of this encounter Procedures Procedure Name Priority Date/Time Associated Diagnosis Comments XR CHEST 2 VIEWS STAT 03/29/2024 3:47 PM CDT HCG QUALITATIVE STAT 03/29/2024 1:05 PM CDT CBC WITH PLATELETS AND DIFFERENTIAL STAT 03/29/2024 1:04 PM CDT TYPE AND SCREEN, ADULT STAT 03/29/2024 1:04 PM CDT TROPONIN T, HIGH SENSITIVITY STAT 03/29/2024 1:04 PM CDT CBC WITH PLATELETS & DIFFERENTIAL STAT 03/29/2024 1:04 PM CDT TSH WITH FREE T4 REFLEX STAT 03/29/2024 1:04 PM CDT D DIMER QUANTITATIVE STAT 03/29/2024 1:04 PM CDT ABO/RH TYPE AND SCREEN STAT 03/29/2024 1:04 PM CDT BASIC METABOLIC PANEL STAT 03/29/2024 1:04 PM CDT EKG 12-LEAD, TRACING ONLY STAT 03/29/2024 12:40 PM CDT documented in this encounter Results * XR Chest 2 Views (03/29/2024 3:47 PM CDT) Anatomical Region Laterality Modality Chest Digital Radiogra phy Impressions 03/29/2024 3:50 PM CDT IMPRESSION: No infiltrate, pleural effusion or pneumothorax. The cardiac and mediastinal silhouettes are normal. AMILCAR CASTRO MD SYSTEM ID: [id number] Narrative 03/29/2024 3:50 PM CDT XR CHEST 2 VIEWS 03/29/2024 3:47 PM HISTORY: chest pain COMPARISON: None. Procedure Note Amilcar Castro MD - 03/29/2024 XR CHEST 2 VIEWS 03/29/2024 3:47 PM HISTORY: chest pain COMPARISON: None. IMPRESSION: No infiltrate, pleural effusion or pneumothorax. The cardiac and mediastinal silhouettes are normal. AMILCAR CASTRO MD SYSTEM ID: [id number] Sidney Pfeiffer MD IMG DIAGNOSTIC IMAGING ORDERABLES * HCG QUALitative (blood) (03/29/2024 1:05 PM CDT) hCG Serum Qualitative Negative Negative CHASITY 03/29/2024 2:03 PM CDT [facility] Comment:This test is for scr eening purposes. Results should be interpreted along with the clinical picture. Confirmation testing is available if warranted by ordering [id number], HCG Quantitative . Blood BLOOD SPECIMEN / Unknown Venipuncture / Unknown 03/29/2024 1:05 PM CDT 03/29/2024 1:10 PM CDT Sidney Pfeiffer MD LAB - BLOOD ORD ERABLES [facility] Acute Care Lab [address] [facility] Lab (1st floor, no room number) [place] [address], [facility] * Adult Type and Screen (03/29/2024 1:04 PM CDT) ABO/RH(D) A POS 03/29/2024 12:57 PM CDT [facility] B[facility] Antibody Screen Negative Negative 03/29/2024 12:57 PM CDT [facility] BLOOD BANK SPECIMEN EXPIRATION DATE [id number] 03/29/2024 12:57 PM CDT [facility] Blood BLOOD SPECIMEN / Unknown Venipuncture / Unknown 03/29/2024 1:04 PM CDT 03/29/2024 1:13 PM CDT Sidney Pfeiffer MD LAB - BLOOD BAN K TEST ORDER BLOOD [place] [address], [facility] * CBC with platelets and [...] Pfeiffer MD LAB - BLOOD ORD ERABLES [facility] [address] Lab (1st floor, no room number) [address] * TSH with free T4 reflex (03/29/2024 1:04 PM CDT) Pathologist [facility] [place] TSH 1.67 0.30 - 4.20 uIU/mL 03/29/2024 1:52 PM CDT [facility] Blood BLOOD SPECIMEN / Unknown Venipuncture / Unknown 03/29/2024 1:04 PM CDT 03/29/2024 1:10 PM CDT Sidney Pfeiffer MD LAB - BLOOD ORD ERABLES [facility] Lab [address] Lab (1st floor, no room number) [address] * Troponin T, High Sensitivity (03/29/2024 1:04 PM CDT) Pathologist [facility] [place] Troponin T, High Sensitivity <6 <=14 ng/L [...] MD LAB - BLOOD ORD ERABLES LABORATORY [facility] Acute Care Lab [address] [facility] Lab (1st floor, no room number) [place] [address], [facility] * (ABNORMAL) Basic metabolic panel (03/29/2024 1:04 PM CDT) Sodium 138 135 - 145 mmol/L 03/29/2024 1:46 PM CDT LABORATORY Potassium 3.5 3.4 - 5.3 mmol/L 03/29/2024 1:46 PM CDT LABORATORY Chloride 103 98 - 107 mmol/L 03/29/2024 1:46 PM CDT LABORATORY Carbon Dioxide (CO2) 20(L) 22 - 29 mmol/L 03/29/2024 1:46 PM CDT LABORATORY Anion Gap 15 7 - 15 mmol/L 03/29/2024 1:46 PM CDT LABORATORY Urea Nitrogen 10.8 6.0 - 20.0 mg/dL 03/29/2024 1:46 PM CDT LABORATORY Creatinine 0.70 0.51 - 0.95 mg/dL 03/29/2024 1:46 PM CDT LABORATORY GFR Estimate >90 >60 mL/min/1.7 3m2 03/29/2024 1:46 PM CDT [facility] Comment:eGFR calculated us2020 CKD-EPI equation. Calcium 8.7(L) 8.8 - 10.4 [...] - BLOOD ORD ERABLES Performing Organization Address [facility]/ZIP Co de Phone Number [facility] [address] Lab (1st floor, no room number) [place] [address] * D dimer quantitative (03/29/2024 1:04 PM CDT) [facility] D-Dimer Quantitative 0.31 0.00 - 0.50 ug/mL [...] - BLOOD ORD ERABLES Performing Organization Address City/[facility]/ZIP Co de Phone Number [facility] [address] Lab (1st floor, no room number) [place] [address] * EKG 12 lead (03/29/2024 12:40 PM CDT) Systolic Blood Pressure mmHg RADIOLOGY RESULTS Diastolic Blood Pressure mmHg RADIOLOGY RESULTS Ventricular Rate 119 BPM RAD IOLOGY RESULTS Atrial Rate 119 BPM RADIOLOG Y RESULTS FL Interval 156 ms RADIOLOG Y RESULTS QRS Duration 92 ms RADIOLO GY RESULTS QT 306 ms RADIOLOGY RESULTS QTc 430 ms RADIOLOGY RESULTS P [place] 74 degrees RADIOLOGY RESULTS R AXIS 76 degrees RADIOLOGY RESULTS T [place] 46 degrees RADIOLOGY RESULTS Interpretation ECG Sinus tachycardia Incomplete right bundle branch block Borderline ECG No previous ECGs available Unconfirmed report - interpretation of this ECG is computer generated - see medical record for final interpretation Confirmed by - EMERGENCY ROOM, PHYSICIAN ([id number]), photography editor AJAY GARCIA ([id number]) on 03/30/2024 6:40:45 AM RADIOLOGY RESULTS 03/29/2024 12:4 0 PM CDT 03/30/2024 6:40 AM CDT Sidney Pfeiffer MD ECG ORDERABLES RADIOLOGY RESULTS documented in this encounter Visit Diagnoses Diagnosis Palpitations Atypical chest pain Other chest pain documented in this encounter Administered Medications Inactive Administered Medications - up to 3 most recent administrations Medication Order MAR Action Action Date Dose Rate Site albuterol (PROVENTIL HFA/VENTOLIN HFA) inhaler 2 puff, Inhalation, ONCE, On Kiya 03/29/24 at 1315, For 1 dose, Check the dose counter on the inhaler to ensure there are doses remaining before administering. Prime by spraying into the air 4 times prior to first use and if not used within 2 weeks. $Given 03/29/2024 1:19 PM CDT 2 puffs ketorolac (TORADOL) injection 15 mg 15 mg, Intravenous, ONCE, On Kiya 03/29/24 at 1315, For 1 dose, Can cause pain on injection. If ordered intravenously (IV) : administer through a running maintenance fluid over 1 minute followed by a flush. If patient complains of pain on injection, may dilute 15-30 mg in 5 mL and push over 1 to 2 minutes. $Given 03/29/2024 1:21 PM CDT 15 mg lactated ringers BOLUS 1,000 mL Intravenous, 1,000 mL, ONCE, at 1,000 mL/hr, Administer over 1 Hours, On Kiya 03/29/24 at 1315, For 1 dose $New Bag 03/29/2024 1:21 PM CDT 1,000 mLs 1000 mL/hr LORazepam (ATIVAN) injection 0.5 mg 0.5 mg, Intravenous, ONCE, On Kiya 03/29/24 at 1315, For 1 dose, IV Route: Dilute with equal volume NS prior to use. This drug may cause significant respiratory depression. Monitor respiratory status and vital signs carefully for 1 hour after each dose. $Given 03/29/2024 1:24 PM CDT 0.5 mg documented in this encounter Active and Recently Administered Medications Times are shown in CDT. Scheduled Medication Order 03/27/2024 03/28/2024 03/29/2024 albuterol (PROVENTIL HFA/VENTOLIN HFA) inhaler (COMPLETED) 2 puff, Inhalation, ONCE, On Kiya 03/29/24 at 1315, For 1 dose, Check the dose counter on the inhaler to ensure there are doses remaining before administering. Prime by spraying into the air 4 times prior to first use and if not used within 2 weeks. 1319 ($Given - Provi wayne: Kathrine Colorado RN) ketorolac (TORADOL) injection 15 mg (COMPLETED) 15 mg, Intravenous, ONCE, On Kiya 03/29/24 at 1315, For 1 dose, Can cause pain on injection. If ordered intravenously (IV) : administer through a running maintenance fluid over 1 minute followed by a flush. If patient complains of pain on injection, may dilute 15-30 mg in 5 mL and push over 1 to 2 minutes. 1321 ($Given - Provi wayne: Kathrine Colorado RN) lactated ringers BOLUS 1,000 mL (COMPLETED) Intravenous, 1,000 mL, ONCE, at 1,000 mL/hr, Administer over 1 Hours, On Kiya 03/29/24 at 1315, For 1 dose 1321 ($New Bag - Pro vider: Kathrine Colorado RN)1631 (Stopped - Provider: Toya Chisholm RN) LORazepam (ATIVAN) injection 0.5 mg (COMPLETED) 0.5 mg, Intravenous, ONCE, On Kiya 03/29/24 at 1315, For 1 dose, IV Route: Dilute with equal volume NS prior to use. This drug may cause significant respiratory depression. Monitor respiratory status and vital signs carefully for 1 hour after each dose. 1324 ($Given - Provi wayne: Kathrine Colorado RN) documented in this encounter Additional Health Concerns Assessment Noted Time PHQ-9 Depression Total Score: 5 02/02/20 19 2:09 PM CDT documented as of this encounter Care Teams Brokerage Purchase And Sale Clerk Relationship Specialty Start Date End Date No Ref-Primary, Physician PCP - General 10/30/17 documented as of this encounter
--- OUTSIDE RECORDS SUMMARY | 2024-04-01 15:03 | XMS_ITS | Encounter Summary ---
Author Organization [facility] Address [address] [place] [address]. [place] [address] Care Team Providers Care Railway Signal Technician Name Role Phone No Ref-Primary, Physician Primary Care Provider Kamilla Moya MD Unavailable [phone] Toya Oseguera APRN [facility] Unavailable + [phone] Encounter Details Date Type Department Care Team (Late st Contact Info) Description 01/30/2019 [facility] Medical Advice [facility] [address] [place] [address] Kamilla Moya MD [address] [facility] [address] [place] [address] Social History Tobacco Use Types Packs/Day Years Used Date Smoking Tobacco: Never Smokeless Tobacco: Never Alcohol Use Standard Drinks/Week Comments Yes 0 (1 standard drink = 0.6 oz pur e alcohol) vodka PHQ-2 Answer Date Recorded PHQ-2 Score 0 01/10/2019 Sex and Gender Information Value Date Recorded Sex Assigned at Not on file Gender Identity Not on file Sexual Orientation Not on file documented as of this encounter Plan of Treatment Not on file documented as of this encounter Visit Diagnoses Not on filedocumented in this encounter Additional Health Concerns Assessment Noted Time PHQ-9 Depression Total Score: 1 04/13/20 17 2:59 PM CDT documented as of this encounter Care Teams Railway Signal Technician Relationship Specialty Start Date End Date No Ref-Primary, Physician PCP - General 10/30/17 Kamilla Moya MD [address] [facility] EM[facility]PART[facility] [address] [place] [address] Assigned Surgical Provider 06/13/20 Toya Oseguera APRN CNM [address] [facility] [address] [place] [address] Assigned OBGYN Provider 06/13/2008/09 documented as of this encounter
== END 2024-04-01 15:01 | disposition home or self-care (01) ==
LOC: NFLDUCREF 15:01
PROVIDERS: PCP Family Medicine; Visit Provider Family Medicine
DX: H53.9 Unspecified visual disturbance (principal)
CPT/HCPCS: 86618